=== PATIENT | female | born 1955 | race Caucasian/White ===

== ENCOUNTER 2017-02-22 10:50 | Emergency (ER) | payer BC ==
[2017-02-22 11:02] VITALS: BP 130/83; PULSE 79; TEMP 97.7; BMI 34.3
[2017-02-22] MEDS ORDERED: IBUPROFEN 400 MG TABLET (FP) PO ONE ×2 (11:13→11:23)
--- NOTE | 2017-02-22 11:14 | PDOC ---
History of Present Illness - General Chief Complaint: Injury Stated Complaint: LEFT RIBCAGE PAIN Time Seen by Provider: 02/22/17 10:52 History Source: Patient Exam Limitations: No Limitations - History of Present Illness Initial Comments: 02/22/17 11:14 61y F hx of hypothyroidism, hypertension presents with L chest pain. Pt states she had a mechanical fall 1 week ago, tripping over a cat bed, since then she has had L sided chest pain. The pain seems to be worsening today so she came o [facility] ED. The pt states she has not taken any pain medications at home, but the pain is wrose with any movements such as sitting up or lifting her arms. She states she was carrying some groceries this weekend which may have worsened it, she states it did feel a bit sore afterwards. pt denies any BERNARD, CP with exertion, n/v, diparhosis, dizziness,palitations, leg swelling, cough, hemopysis, fever/chills. no known cardiac disease. Past History - Past Medical History Allergies/Adverse Reactions: Allergies Allergy/AdvReac Type Severity Reaction Status Date / Time No Known Allergies Allergy Verified 02/22/17 10:51 Home Medications: Ambulatory Orders Levothyroxine [Synthroid -] 150 mcg PO DAILY 02/22/17 Metoprolol Succinate [Toprol Xl] 50 mg PO DAILY 02/22/17 Omeprazole Magnesium [Prilosec] 40 mg PO DAILY 02/22/17 GI Disorders: Yes (GERD) HTN: Yes Thyroid Disease: Yes - Surgical History Orthopedic Surgery: Yes (bilateral hip replacements) - Psycho/Social/Smoking Cessation Hx Anxiety: No Suicidal Ideation: No Smoking History: Never smoked Information on smoking cessation initiated: No Hx Alcohol Use: No Drug/Substance Use Hx: No Review of Systems - Review of Systems Able to Perform ROS?: Yes Comments:: 02/22/17 11:16 Constitutional - no reported Fever, Chills, HEENT: no reported vision changes, sore throat Respiratory: no reported cough, sob, hemoptysis Cardiac: + chest pain, no reported palpitations, light headedness, leg swelling Abd/GI: no reported abd pain, nausea, vomiting, blood per rectum, melena, diarrhea : no reported dysuria, frequency, discharge Musculskelatal - no reported back pain, joint swelling skin - no reported bruising, erythema, rash neurological: no reported headache, numbness, focal weakness, tingling, ataxia, hematologic: no reported anemia, easy bruising, easy bleeding *Physical Exam - Vital Signs Last Vital Signs Temp Pulse Resp BP Pulse Ox 97.7 F 79 18 130/83 97 02/22/17 10:50 02/22/17 10:50 02/22/17 10:50 02/22/17 10:50 02/22/17 10:50 - Physical Exam Comments: 02/22/17 11:17 GENERAL: The patient is awake, alert, and fully oriented, Nontoxic - in no acute distress. HEAD: Normocephalic, atraumatic. EYES: extraocular movements intact, sclera anicteric, conjunctiva clear. ENT: Normal voice, Moist mucous membranes. NECK: Normal range of motion, supple LUNGS: Breath sounds equal, clear to auscultation bilaterally. No wheezes, no rhonchi, no rales. CHEST WALL: Reproducible tenderness on L anterior chest wall over breast worse with pushing against resistance and with shoulder abduction. no notable bruising, rashes/erythema. HEART: Regular rate and rhythm, normal S1 and S2 without murmur, rub or gallop. ABDOMEN: Soft, nontender, normoactive bowel sounds. No guarding, no rebound. . No CVA tenderness EXTREMITIES: Normal range of motion, no edema. NEUROLOGICAL: No facial assymetry, Normal speech, PSYCH: Normal mood, normal affect. SKIN: Warm, Dry, normal turgor, Heart Score/ECG Review - ECG Impressions Comment:: 02/22/17 11:58 Twelve-lead EKG was performed and reviewed by me. There is normal sinus rhythm with a normal rate. rate of 63 1st degree av block nonspecific TWI in lead iII q wave in lead III ED Treatment Course - RADIOLOGY Radiology Studies Ordered: Category Date Time Status RIBS-LEFT SIDE [RAD] Stat Radiology 02/22/17 11:13 Ordered Medical Decision Making - Medical Decision Making 02/22/17 11:18 pt fell on her L chest wall with her L arm breaking her fall (no other bony injury/pain) landnig on the floor 9 days ago suspect costochondritis vs. muscle strain vs. fx motrin xray to r/o fx ekg to screen for cardiac disase due to age/risk factors, but clinically this is consistent with msk pain 02/22/17 12:29 xrays negative for fx suspect strain/costocondrytis will recomends upprotive management and pmd fu I discussed the physical exam findings, ancillary test results and final diagnoses with the patient. I answered all of the patient's questions. The patient was satisfied with the care received and felt comfortable with the discharge plan and treatment plan. The patient will call their primary care physician within 24 hours to arrange follow-up and will return to the Emergency Department with any new, persistent or worsening symptoms. *DC/Admit/Observation/Transfer Diagnosis at time of Disposition: Muscular chest pain - Discharge Dispostion Disposition: HOME Condition at time of disposition: Improved Admit: No - Referrals Referrals: Fredy Piña [Primary Care Provider] - - Patient Instructions Printed Discharge Instructions: DI for Muscle Strain Additional Instructions: Return to the emergency department immediately with ANY new, persistent or worsening symptoms. Avoid heavy lifting. Take ibuprofen or tylenol as needed for pain. You MUST call and follow up with your doctor in 2-3 days for further evaluation of your symptoms. Results were discussed with you. Please make sure your doctor reviews the results of your emergency evaluation. Print Language: KENYAN
--- NOTE | 2017-02-23 21:05 | EKG ---
Test Reason : Blood Pressure : / mmHG Vent. Rate : 063 BPM Atrial Rate : 063 BPM P-R Int : 220 ms QRS Dur : 098 ms QT Int : 418 ms P-R-T Axes : 020 005 -03 degrees QTc Int : 427 ms SINUS RHYTHM WITH 1ST DEGREE A-V BLOCK MINIMAL VOLTAGE CRITERIA FOR LVH, MAY BE NORMAL VARIANT NO PREVIOUS ECGS AVAILABLE REPEAT EKG IF CLINICALLY INDICATED Confirmed by YUNI TORRES MD ([id number]) on 02/23/2017 9:05:32 PM Referred By: SKY ROSAS Confirmed By:YUNI TORRES MD
== END 2017-02-22 12:50 | disposition home or self-care (01) ==
LOC: FER 10:50
DX: M79.1 Myalgia (principal); E03.9 Hypothyroidism, unspecified; I10 Essential (primary) hypertension; W01.0XXA Fall on same level from slipping, tripping and stumbling without subsequent striking against object, initial encounter; Y93.89 Activity, other specified; Y92.9 Unspecified place or not applicable; Z96.643 Presence of artificial hip joint, bilateral
CPT/HCPCS: 71101-TC; 93005; 99283-25

== ENCOUNTER 2020-07-16 08:11 | Emergency (ER) | payer OTHER, BC ==
[2020-07-16 08:37] VITALS: BP 152/85; PULSE 72; TEMP 98.7; BMI 41.1
[2020-07-16] MEDS ORDERED: SODIUM CHLORIDE 0.9% 1000 ML INFUS.BAG IV ONE (08:54)
== END 2020-07-16 10:11 | disposition home or self-care (01) ==
LOC: FER 08:11
DX: R07.82 Intercostal pain (principal)
CPT/HCPCS: 71046-TC-FY; 71101-TC-RT-FY; 99284-25

== ENCOUNTER 2023-01-05 14:14 | Emergency (ER) | payer BC, OTHER ==
[2023-01-05 14:33] VITALS: BP 174/88; PULSE 81; RESP 18; TEMP 98.6; BMI 36.8
[2023-01-05] MEDS ORDERED: NAPROXEN 500 MG TABLET PO ONE (14:36)
[2023-01-05] MEDS ORDERED: NAPROXEN 500 MG TABLET ONE ×2 (14:53→15:10)
[2023-01-05] MEDS ORDERED: LIDOCAINE 5% TOPICAL PATCH ONE (18:07)
== END 2023-01-05 15:55 | disposition home or self-care (01) ==
LOC: FER 14:14
DX: S63.501A Unspecified sprain of right wrist, initial encounter (principal); M25.531 Pain in right wrist; V49.40XA Driver injured in collision with unspecified motor vehicles in traffic accident, initial encounter; Y93.I9 Activity, other involving external motion; Y92.410 Unspecified street and highway as the place of occurrence of the external cause
CPT/HCPCS: 73110-TC-RT-FY; 73130-TC-RT-FY; 99283-25